=== PATIENT | female | born 1990 | race African-American/Black ===

== ENCOUNTER 2016-03-23 15:41 | Emergency (ER) | payer OTHER ==
[~2016-03-23] VITALS: Ht 172.7 cm; Wt 71.3 kg
[~2016-03-23 15:41] MED LIST: BENTYL20 MG PO; BIOTIN1000 MICRO PO; CELEXA10 MG PO; CLINDAMYCIN HC300 MG PO; LEVBID0.375 MG PO; MIRALAX17 GM PO; MIRALAX255 GM PO; PEPCID20 MG PO; PRILOSEC10 MG PO; TOPAMAX50 MG PO; ULTRAM50 MG PO; ZITHROMAX Z-PA250 MG PO; ZOFRAN ODT8 MG PO
[2016-03-23] MEDS ORDERED: FLEXERIL10 MG PO (19:59)
[2016-03-23] MEDS ORDERED: NORCO 5/3251 TABLET PO (19:59)
[2016-03-23 20:45] VITALS: BP 115/71
== END 2016-03-23 20:46 | disposition home or self-care (01) ==
LOC: EME 15:41
DX: S46.912A Strain of unspecified muscle, fascia and tendon at shoulder and upper arm level, left arm, initial encounter (principal); V49.40XA Driver injured in collision with unspecified motor vehicles in traffic accident, initial encounter; F17.200 Nicotine dependence, unspecified, uncomplicated
CPT/HCPCS: 73030; 99281; 99283

== ENCOUNTER 2016-04-17 12:48 | Emergency (ER) | payer OTHER ==
[~2016-04-17] VITALS: Ht 172.7 cm; Wt 72.9 kg
[~2016-04-17 12:48] MED LIST changes: +FLEXERIL10 MG PO; +NORCO 5/3251 TABLET PO
[2016-04-17 13:22] LABS: HEMATOCRIT 35.7 % (36.0-46.0); MCH 31.3 PG (29.0-34.0); MCHC 34.5 G/DL (30.0-36.0); MCV 90.8 FL (83-99); MEAN PLAT.VOLUME 10.7 uM^3 (9.5-12.4); PLATELET COUNT 210 K/uL (156-360); RBC DIS.WIDTH-CV 12.7 % (11.8-14.6); RBC DIS.WIDTH-SD 41.4 % (39-53); RED BLOOD COUNT 3.93 M/uL (3.80-5.20); WHITE BLOOD COUNT 5.7 K/uL (4.1-10.2)
[2016-04-17 13:23] LABS: ADD MIUA? NO; BILIRUBIN NEGATIVE; BLOOD NEGATIVE; COLOR YELLOW ((YELLOW)); GLUCOSE (STRIP) NEGATIVE; KETONES NEGATIVE; LEUKOCYTES NEGATIVE; NITRITE NEGATIVE; PROTEIN (STRIP) NEGATIVE; SPECIFIC GRAVITY 1.008 (1.000-1.030); UCUL ADDED? NO; UROBILINOGEN 0.2 MG/DL (0.2-1.0)
[2016-04-17 13:33] LABS: CHLORIDE 111 mEq/L (99-109); POTASSIUM 3.8 mEq/L (3.7-5.4); SODIUM 139 mEq/L (136-147)
[2016-04-17 13:35] LABS: GLUCOSE 91 mg/dL (70-99)
[2016-04-17 13:36] LABS: ANION GAP 8 MEQ/L (2-14)
[2016-04-17 13:37] LABS: TOTAL BILIRUBIN 0.6 mg/dL (0.0-1.0)
[2016-04-17 13:39] LABS: ALKALINE PHOSPHATASE 52 IU/L (3-129); GFR ESTIMATE (CALCULATED) > 59 mL/min/
[2016-04-17 13:40] LABS: UREA NITROGEN (BUN) 12 mg/dL (9-23)
[2016-04-17 13:48] LABS: QUANTITATIVE HCG < 4.0 MIU/ML
[2016-04-17 14:55] LABS: LIPASE 64 U/L (1.0-51.0)
[2016-04-17 16:05] LABS: INFLUENZA A VIRAL ANTIGEN NEGATIVE; INFLUENZA B VIRAL ANTIGEN NEGATIVE
[2016-04-17] MEDS ORDERED: ZOFRAN ODT4 MG PO (16:53)
[2016-04-17] MEDS ORDERED: NAPROSYN500 MG PO (16:53)
[2016-04-17 17:21] VITALS: BP 95/57
== END 2016-04-17 17:29 | disposition home or self-care (01) ==
LOC: EME 12:48
PROVIDERS: Nurse Practitioner Family
DX: N83.201 Unspecified ovarian cyst, right side (principal); M79.1 Myalgia; R74.8 Abnormal levels of other serum enzymes; K59.00 Constipation, unspecified; F17.200 Nicotine dependence, unspecified, uncomplicated
CPT/HCPCS: 74177; 80053; 81003; 83690; 84702; 85027; 87502; 93005; 99281; 99285; J1885; J7030

== ENCOUNTER 2016-06-15 23:56 | Emergency (ER) | payer OTHER ==
[~2016-06-15] VITALS: Ht 172.7 cm; Wt 76.1 kg
[~2016-06-15 23:56] MED LIST changes: +NAPROSYN500 MG PO; +ZOFRAN ODT4 MG PO
[2016-06-16 00:32] LABS: HEMATOCRIT 32.2 % (36.0-46.0); MCH 30.7 PG (29.0-34.0); MCHC 33.2 G/DL (30.0-36.0); MCV 92.5 FL (83-99); MEAN PLAT.VOLUME 10.2 uM^3 (9.5-12.4); PLATELET COUNT 205 K/uL (156-360); RBC DIS.WIDTH-CV 12.4 % (11.8-14.6); RBC DIS.WIDTH-SD 41.9 % (39-53); RED BLOOD COUNT 3.48 M/uL (3.80-5.20); WHITE BLOOD COUNT 6.2 K/uL (4.1-10.2)
[2016-06-16 00:42] LABS: CHLORIDE 106 mEq/L (99-109); POTASSIUM 3.7 mEq/L (3.7-5.4); SODIUM 137 mEq/L (136-147)
[2016-06-16 00:45] LABS: GLUCOSE 95 mg/dL (70-99)
[2016-06-16 00:46] LABS: ANION GAP 7 MEQ/L (2-14)
[2016-06-16 00:47] LABS: TOTAL BILIRUBIN 0.1 mg/dL (0.0-1.0)
[2016-06-16 00:48] LABS: ALKALINE PHOSPHATASE 42 IU/L (3-129); GFR ESTIMATE (CALCULATED) > 59 mL/min/
[2016-06-16 00:49] LABS: UREA NITROGEN (BUN) 16 mg/dL (9-23)
[2016-06-16 00:50] LABS: ADD MIUA? YES; BILIRUBIN NEGATIVE; BLOOD SMALL; COLOR STRAW ((YELLOW)); GLUCOSE (STRIP) NEGATIVE; KETONES NEGATIVE; LEUKOCYTES NEGATIVE; NITRITE NEGATIVE; PROTEIN (STRIP) NEGATIVE; SPECIFIC GRAVITY 1.012 (1.000-1.030); UROBILINOGEN 0.2 MG/DL (0.2-1.0)
[2016-06-16 00:55] LABS: BACTERIA RARE /HPF; EPITHELIAL CELLS RARE /HPF; MUCUS TRACE /LPF; RED BLOOD CELLS 0-5 /HPF (0-5); UCUL ADDED? NO; WHITE BLOOD CELLS 0-5 /HPF (0-5)
[2016-06-16 00:59] LABS: QUANTITATIVE HCG < 4.0 MIU/ML
[2016-06-16 03:51] LABS: LIPASE 58 U/L (1.0-51.0)
[2016-06-16] MEDS ORDERED: NORCO 5/3251 TABLET PO (05:15)
[2016-06-16] MEDS ORDERED: BENTYL20 MG PO (05:15)
[2016-06-16 05:31] VITALS: BP 97/55
== END 2016-06-16 05:50 | disposition home or self-care (01) ==
LOC: EME 23:56
DX: R10.84 Generalized abdominal pain (principal); R19.7 Diarrhea, unspecified; Z87.19 Personal history of other diseases of the digestive system; Z88.0 Allergy status to penicillin; Z88.1 Allergy status to other antibiotic agents
CPT/HCPCS: 80053; 81003; 83690; 84702; 85027; 99281; 99283

== ENCOUNTER 2016-07-18 03:35 | Emergency (ER) | payer OTHER ==
[~2016-07-18] VITALS: Ht 172.7 cm; Wt 72.2 kg
[2016-07-18 04:21] VITALS: BP 124/87
== END 2016-07-18 04:22 | disposition home or self-care (01) ==
LOC: EME 03:35
DX: G89.18 Other acute postprocedural pain (principal); K08.89 Other specified disorders of teeth and supporting structures; K58.9 Irritable bowel syndrome, unspecified; F17.200 Nicotine dependence, unspecified, uncomplicated
CPT/HCPCS: 99281; 99283

== ENCOUNTER 2016-07-18 20:21 | Emergency (ER) | payer OTHER ==
[~2016-07-18] VITALS: Ht 172.7 cm; Wt 72.1 kg
[2016-07-18 22:32] VITALS: BP 144/80
== END 2016-07-18 22:32 | disposition home or self-care (01) ==
LOC: EME 20:21
DX: K08.89 Other specified disorders of teeth and supporting structures (principal); G89.18 Other acute postprocedural pain; Z98.818 Other dental procedure status; N89.8 Other specified noninflammatory disorders of vagina; F17.200 Nicotine dependence, unspecified, uncomplicated
CPT/HCPCS: 99281; 99284; J1885; J3010

== ENCOUNTER 2016-09-02 10:02 | Emergency (ER) | payer OTHER ==
[~2016-09-02] VITALS: Ht 172.7 cm; Wt 69.1 kg
[2016-09-02 11:56] LABS: HEMATOCRIT 37.3 % (36.0-46.0); MCH 29.6 PG (29.0-34.0); MCHC 32.4 G/DL (30.0-36.0); MCV 91.2 FL (83-99); MEAN PLAT.VOLUME 10.8 uM^3 (9.5-12.4); PLATELET COUNT 149 K/uL (156-360); RBC DIS.WIDTH-CV 14.2 % (11.8-14.6); RBC DIS.WIDTH-SD 47.7 % (39-53); RED BLOOD COUNT 4.09 M/uL (3.80-5.20); WHITE BLOOD COUNT 1.9 K/uL (4.1-10.2)
[2016-09-02 11:57] LABS: CHLORIDE 105 mEq/L (99-109); POTASSIUM 3.6 mEq/L (3.7-5.4); SODIUM 137 mEq/L (136-147)
[2016-09-02 11:59] LABS: GLUCOSE 85 mg/dL (70-99)
[2016-09-02 12:00] LABS: ANION GAP 9 MEQ/L (2-14)
[2016-09-02 12:01] LABS: TOTAL BILIRUBIN 0.2 mg/dL (0.0-1.0)
[2016-09-02 12:03] LABS: ALKALINE PHOSPHATASE 48 IU/L (3-129); GFR ESTIMATE (CALCULATED) > 59 mL/min/
[2016-09-02 12:04] LABS: UREA NITROGEN (BUN) 5 mg/dL (9-23)
[2016-09-02 12:11] LABS: QUANTITATIVE HCG < 4.0 MIU/ML
[2016-09-02] MEDS ORDERED: ESCITALOPRAM OX10 MG PO (12:12)
[2016-09-02] MEDS ORDERED: VALACYCLOVIR1000 MG PO (12:12)
[2016-09-02] MEDS ORDERED: LINZESS290 MCG PO (12:12)
[2016-09-02 12:13] LABS: INTERNAL CONTROL VALID? YES; MONOSPOT (MONONUCLEOSIS SEROL) POSITIVE
[2016-09-02 13:05] LABS: BILIRUBIN NEGATIVE; BLOOD NEGATIVE; COLOR YELLOW ((YELLOW)); GLUCOSE (STRIP) NEGATIVE; KETONES 20; LEUKOCYTES NEGATIVE; NITRITE NEGATIVE; PROTEIN (STRIP) NEGATIVE; SPECIFIC GRAVITY 1.013 (1.000-1.030); UROBILINOGEN 0.2 MG/DL (0.2-1.0)
[2016-09-02 13:06] LABS: ADD MIUA? NO; UCUL ADDED? NO
[2016-09-02] MEDS ORDERED: TRAMADOL HCL50 MG PO (13:29)
[2016-09-02] MEDS ORDERED: PREDNISONE10 M1 PO (13:29)
[2016-09-02] MEDS ORDERED: MOTRIN600 MG PO (13:29)
[2016-09-02 13:49] VITALS: BP 102/68
[2016-09-05 11:56] LABS: CHLAMYDIA TRACHOMATIS NEGATIVE; NEISSERIA GONORRHOEAE NEGATIVE
== END 2016-09-02 13:50 | disposition home or self-care (01) ==
LOC: EME 10:02
PROVIDERS: Physician Assistant
DX: B27.89 Other infectious mononucleosis with other complication (principal); D72.819 Decreased white blood cell count, unspecified; N89.8 Other specified noninflammatory disorders of vagina; M79.1 Myalgia; F17.200 Nicotine dependence, unspecified, uncomplicated
CPT/HCPCS: 80053; 81003; 84702; 85027; 86308; 86701 90; 86702 90; 86703; 87210; 87491; 87591; 87651 90; 99281; 99284; J1885; J3010; J7030

== ENCOUNTER 2016-10-30 01:05 | Emergency (ER) | payer OTHER ==
[~2016-10-30] VITALS: Ht 172.7 cm; Wt 68.5 kg
[~2016-10-30 01:05] MED LIST changes: +ESCITALOPRAM OX10 MG PO; +LINZESS290 MCG PO; +MOTRIN600 MG PO; +PREDNISONE10 M1 PO; +TRAMADOL HCL50 MG PO; +VALACYCLOVIR1000 MG PO
[2016-10-30 01:59] LABS: HEMATOCRIT 28.7 % (36.0-46.0); MCH 32.3 PG (29.0-34.0); MCHC 34.8 G/DL (30.0-36.0); MCV 92.6 FL (83-99); MEAN PLAT.VOLUME 10.2 uM^3 (9.5-12.4); PLATELET COUNT 217 K/uL (156-360); RBC DIS.WIDTH-CV 15.7 % (11.8-14.6); RBC DIS.WIDTH-SD 53.3 % (39-53); WHITE BLOOD COUNT 4.1 K/uL (4.1-10.2)
[2016-10-30] MEDS ORDERED: PERCOCET 5/31 TABLET PO (02:32)
[2016-10-30 03:01] VITALS: BP 107/64
[2016-10-31 13:40] LABS: CHLAMYDIA TRACHOMATIS NEGATIVE; NEISSERIA GONORRHOEAE NEGATIVE
== END 2016-10-30 03:04 | disposition home or self-care (01) ==
LOC: EME 01:05
PROVIDERS: Emergency Medicine
DX: B00.9 Herpesviral infection, unspecified (principal); Z21 Asymptomatic human immunodeficiency virus [HIV] infection status; K58.9 Irritable bowel syndrome, unspecified; F17.200 Nicotine dependence, unspecified, uncomplicated; Z88.0 Allergy status to penicillin
CPT/HCPCS: 85027; 86355 90; 86359 90; 86360 90; 87210; 87491; 87591; 99281; 99284

== ENCOUNTER 2016-11-06 16:36 | Emergency (ER) | payer OTHER ==
[~2016-11-06] VITALS: Ht 172.7 cm; Wt 66.7 kg
[~2016-11-06 16:36] MED LIST changes: +PERCOCET 5/31 TABLET PO
[2016-11-06 16:58] LABS: ADD MIUA? NO; BILIRUBIN NEGATIVE; BLOOD NEGATIVE; COLOR YELLOW ((YELLOW)); GLUCOSE (STRIP) NEGATIVE; KETONES NEGATIVE; LEUKOCYTES NEGATIVE; NITRITE NEGATIVE; PROTEIN (STRIP) NEGATIVE; UCUL ADDED? NO; UROBILINOGEN 0.2 MG/DL (0.2-1.0)
[2016-11-06] MEDS ORDERED: TRIUMEQ TABLET1 EACH PO (18:07)
[2016-11-06 18:56] LABS: EOSINOPHIL (%) 0.6 % (0-5); HEMATOCRIT 34.2 % (36.0-46.0); IMMATURE GRANULOCYTE (%) 0.2 % (0.0-0.7); INSTRUMENT ABS NEUTROPHIL CT 3.2 K/uL; LYMPHOCYTE COUNT 1.7 K/uL (1.0-2.8); MCH 32.3 PG (29.0-34.0); MCHC 34.5 G/DL (30.0-36.0); MCV 93.7 FL (83-99); MEAN PLAT.VOLUME 9.9 uM^3 (9.5-12.4); MONOCYTE (%) 6.6 % (3-12); MONOCYTE COUNT 0.4 K/uL (0-0.8); NEUTROPHIL (%) 60.2 % (45-76); NEUTROPHIL COUNT 3.2 K/uL (1.8-6.4); PLATELET COUNT 238 K/uL (156-360); RBC DIS.WIDTH-CV 14.9 % (11.8-14.6); RBC DIS.WIDTH-SD 51.2 % (39-53); RED BLOOD COUNT 3.65 M/uL (3.80-5.20); WHITE BLOOD COUNT 5.3 K/uL (4.1-10.2)
[2016-11-06 19:05] LABS: CHLORIDE 111 mEq/L (99-109); POTASSIUM 3.8 mEq/L (3.7-5.4); SODIUM 141 mEq/L (136-147)
[2016-11-06 19:07] LABS: GLUCOSE 107 mg/dL (70-99)
[2016-11-06 19:08] LABS: ANION GAP 10 MEQ/L (2-14)
[2016-11-06 19:09] LABS: TOTAL BILIRUBIN 0.5 mg/dL (0.0-1.0)
[2016-11-06 19:10] LABS: ALKALINE PHOSPHATASE 56 IU/L (3-129); GFR ESTIMATE (CALCULATED) > 59 mL/min/
[2016-11-06 19:12] LABS: UREA NITROGEN (BUN) 12 mg/dL (9-23)
[2016-11-06 19:14] LABS: LIPASE 46 U/L (1.0-51.0)
[2016-11-06] MEDS ORDERED: BENTYL20 MG PO (21:17)
[2016-11-06] MEDS ORDERED: ZOFRAN ODT4 MG PO (21:17)
[2016-11-06] MEDS ORDERED: MOTRIN600 MG PO (21:18)
[2016-11-06 21:58] VITALS: BP 116/78
== END 2016-11-06 22:01 | disposition home or self-care (01) ==
LOC: EME 16:36
PROVIDERS: Physician Assistant
DX: R10.9 Unspecified abdominal pain (principal); R11.2 Nausea with vomiting, unspecified; R19.7 Diarrhea, unspecified; M26.609 Unspecified temporomandibular joint disorder, unspecified side; Z21 Asymptomatic human immunodeficiency virus [HIV] infection status; K58.9 Irritable bowel syndrome, unspecified
CPT/HCPCS: 74177; 80053; 81003; 83690; 85025; 87493; 87506; 99281; 99284; J0500; J1885; J2405; J2765; J3010; J7030

== ENCOUNTER 2016-11-12 04:33 | Emergency (ER) | payer OTHER ==
[~2016-11-12] VITALS: Ht 172.7 cm; Wt 66.9 kg
[~2016-11-12 04:33] MED LIST changes: +TRIUMEQ TABLET1 EACH PO
[2016-11-12 05:42] LABS: MCH 32.9 PG (29.0-34.0); MCHC 34.8 G/DL (30.0-36.0); MCV 94.5 FL (83-99); MEAN PLAT.VOLUME 9.9 uM^3 (9.5-12.4); PLATELET COUNT 228 K/uL (156-360); RBC DIS.WIDTH-CV 14.4 % (11.8-14.6); RBC DIS.WIDTH-SD 49.1 % (39-53); RED BLOOD COUNT 3.28 M/uL (3.80-5.20); WHITE BLOOD COUNT 3.6 K/uL (4.1-10.2)
[2016-11-12 05:54] LABS: CHLORIDE 111 mEq/L (99-109); POTASSIUM 3.6 mEq/L (3.7-5.4); SODIUM 144 mEq/L (136-147)
[2016-11-12 05:56] LABS: GLUCOSE 109 mg/dL (70-99)
[2016-11-12 05:57] LABS: ANION GAP 9 MEQ/L (2-14)
[2016-11-12 06:00] LABS: ALKALINE PHOSPHATASE 46 IU/L (3-129); GFR ESTIMATE (CALCULATED) > 59 mL/min/
[2016-11-12 06:01] LABS: UREA NITROGEN (BUN) 7 mg/dL (9-23)
[2016-11-12 06:03] LABS: LIPASE 40 U/L (1.0-51.0)
[2016-11-12 06:10] LABS: TOTAL BILIRUBIN 0.2 mg/dL (0.0-1.0)
[2016-11-12] MEDS ORDERED: ANTI-DIARRHEA2 MG PO (07:04)
[2016-11-12 07:15] VITALS: BP 106/70
== END 2016-11-12 07:16 | disposition home or self-care (01) ==
LOC: EME 04:33
PROVIDERS: Emergency Medicine
DX: R11.2 Nausea with vomiting, unspecified (principal); R19.7 Diarrhea, unspecified; M79.1 Myalgia; D64.9 Anemia, unspecified; Z21 Asymptomatic human immunodeficiency virus [HIV] infection status; F17.200 Nicotine dependence, unspecified, uncomplicated
CPT/HCPCS: 80053; 81003; 83605; 83690; 85027; 86355 90; 86359 90; 86360 90; 87177; 87493; 87506; J2270; J2765; J7030

== ENCOUNTER 2016-11-17 03:09 | Emergency (ER) | payer OTHER ==
[~2016-11-17] VITALS: Ht 175.3 cm; Wt 67.4 kg
[~2016-11-17 03:09] MED LIST changes: +ANTI-DIARRHEA2 MG PO
[2016-11-17 04:25] LABS: HEMATOCRIT 33.1 % (36.0-46.0); MCH 32.7 PG (29.0-34.0); MCHC 34.4 G/DL (30.0-36.0); MCV 94.8 FL (83-99); MEAN PLAT.VOLUME 10.9 uM^3 (9.5-12.4); PLATELET COUNT 176 K/uL (156-360); RBC DIS.WIDTH-CV 14.5 % (11.8-14.6); RBC DIS.WIDTH-SD 49.7 % (39-53); RED BLOOD COUNT 3.49 M/uL (3.80-5.20); WHITE BLOOD COUNT 3.3 K/uL (4.1-10.2)
[2016-11-17 04:36] LABS: CHLORIDE 110 mEq/L (99-109); POTASSIUM 3.4 mEq/L (3.7-5.4); SODIUM 141 mEq/L (136-147)
[2016-11-17 04:38] LABS: GLUCOSE 89 mg/dL (70-99)
[2016-11-17 04:39] LABS: ANION GAP 9 MEQ/L (2-14)
[2016-11-17 04:42] LABS: ALKALINE PHOSPHATASE 49 IU/L (3-129); GFR ESTIMATE (CALCULATED) > 59 mL/min/
[2016-11-17 04:43] LABS: TOTAL BILIRUBIN 0.3 mg/dL (0.0-1.0); UREA NITROGEN (BUN) 6 mg/dL (9-23)
[2016-11-17 04:45] LABS: LIPASE 40 U/L (1.0-51.0)
[2016-11-17] MEDS ORDERED: ZOFRAN8 MG PO (06:07)
[2016-11-17] MEDS ORDERED: ANTI-DIARRHEA2 MG PO (06:07)
[2016-11-17 06:37] VITALS: BP 102/70
== END 2016-11-17 06:39 | disposition home or self-care (01) ==
LOC: EME 03:09
PROVIDERS: Emergency Medicine
DX: R11.2 Nausea with vomiting, unspecified (principal); K58.0 Irritable bowel syndrome with diarrhea; D64.9 Anemia, unspecified; B20 Human immunodeficiency virus [HIV] disease; Z90.49 Acquired absence of other specified parts of digestive tract; F17.200 Nicotine dependence, unspecified, uncomplicated
CPT/HCPCS: 80053; 83630; 83690; 85027; 87177; 87493; 99281; 99285; J2405; J7030

== ENCOUNTER 2016-11-20 06:27 | Emergency (ER) | payer OTHER ==
[~2016-11-20] VITALS: Ht 175.3 cm; Wt 69.2 kg
[~2016-11-20 06:27] MED LIST changes: +ZOFRAN8 MG PO
[2016-11-20 07:02] LABS: HEMATOCRIT 31.4 % (36.0-46.0); MCH 32.7 PG (29.0-34.0); MCHC 34.1 G/DL (30.0-36.0); MEAN PLAT.VOLUME 10.2 uM^3 (9.5-12.4); PLATELET COUNT 209 K/uL (156-360); RBC DIS.WIDTH-CV 14.6 % (11.8-14.6); RBC DIS.WIDTH-SD 51.1 % (39-53); RED BLOOD COUNT 3.27 M/uL (3.80-5.20); WHITE BLOOD COUNT 3.8 K/uL (4.1-10.2)
[2016-11-20 07:23] LABS: D-DIMER ELISA < 150.00 ng/mLDDU (<230)
[2016-11-20 07:25] LABS: ANION GAP 7 MEQ/L (2-14); CHLORIDE 106 MEQ/L (99-109); POTASSIUM 3.5 MEQ/L (3.7-5.4); SAMPLE HEMOLYSIS CHECK 0; SAMPLE ICTERIC CHECK 0; SAMPLE LIPEMIA CHECK 0; SODIUM 139 MEQ/L (136-147)
[2016-11-20 07:30] LABS: GFR ESTIMATE (CALCULATED) > 59 mL/min/; GLUCOSE 87 mg/dL (70-99); UREA NITROGEN (BUN) 9 mg/dL (9-23)
[2016-11-20] MEDS ORDERED: LEVAQUIN750 MG PO (07:36)
[2016-11-20] MEDS ORDERED: PROVENTIL HFA6.7 GM IH (07:36)
[2016-11-20 07:53] VITALS: BP 102/49
== END 2016-11-20 07:54 | disposition home or self-care (01) ==
LOC: EME 06:27
PROVIDERS: Emergency Medicine
DX: J45.909 Unspecified asthma, uncomplicated (principal); B20 Human immunodeficiency virus [HIV] disease; Z88.0 Allergy status to penicillin; F17.200 Nicotine dependence, unspecified, uncomplicated
CPT/HCPCS: 71020; 80048; 85027; 85379; 94640; 99281; 99282

== ENCOUNTER 2016-12-22 10:48 | Emergency (ER) | payer OTHER ==
[~2016-12-22] VITALS: Ht 172.7 cm; Wt 68.4 kg
[~2016-12-22 10:48] MED LIST changes: +LEVAQUIN750 MG PO; +PROVENTIL HFA6.7 GM IH
[2016-12-22 12:33] LABS: EOSINOPHIL COUNT 0.1 K/uL (0-0.3); HEMATOCRIT 33.7 % (36.0-46.0); INSTRUMENT ABS NEUTROPHIL CT 3.2 K/uL; LYMPHOCYTE COUNT 1.6 K/uL (1.0-2.8); MCH 32.7 PG (29.0-34.0); MCHC 33.5 G/DL (30.0-36.0); MCV 97.4 FL (83-99); MEAN PLAT.VOLUME 9.6 uM^3 (9.5-12.4); MONOCYTE (%) 4.7 % (3-12); MONOCYTE COUNT 0.2 K/uL (0-0.8); NEUTROPHIL COUNT 3.2 K/uL (1.8-6.4); PLATELET COUNT 183 K/uL (156-360); RBC DIS.WIDTH-CV 12.9 % (11.8-14.6); RBC DIS.WIDTH-SD 46.3 % (39-53); RED BLOOD COUNT 3.46 M/uL (3.80-5.20); WHITE BLOOD COUNT 5.1 K/uL (4.1-10.2)
[2016-12-22 12:47] LABS: CHLORIDE 111 mEq/L (99-109); POTASSIUM 3.8 mEq/L (3.7-5.4); SODIUM 140 mEq/L (136-147)
[2016-12-22 12:49] LABS: GLUCOSE 95 mg/dL (70-99)
[2016-12-22 12:50] LABS: ANION GAP 7 MEQ/L (2-14)
[2016-12-22 12:51] LABS: TOTAL BILIRUBIN 0.4 mg/dL (0.0-1.0)
[2016-12-22 12:53] LABS: ALKALINE PHOSPHATASE 40 IU/L (3-129); GFR ESTIMATE (CALCULATED) > 59 mL/min/
[2016-12-22 12:54] LABS: UREA NITROGEN (BUN) 8 mg/dL (9-23)
[2016-12-22 12:59] LABS: TROP-I INTERPRETATION NEGATIVE; TROPONIN-I < 0.01 ng/mL (0.0-0.30)
[2016-12-22 13:01] LABS: QUANTITATIVE HCG < 4.0 MIU/ML
[2016-12-22 15:55] VITALS: BP 104/62
== END 2016-12-22 15:55 | disposition home or self-care (01) ==
LOC: EME 10:48
PROVIDERS: Emergency Medicine
DX: R07.89 Other chest pain (principal); Z21 Asymptomatic human immunodeficiency virus [HIV] infection status; F17.200 Nicotine dependence, unspecified, uncomplicated; Z88.0 Allergy status to penicillin
CPT/HCPCS: 71275; 80053; 84484; 84702; 85025; 93005; 99281; 99283

== ENCOUNTER 2017-01-07 23:27 | Emergency (ER) | payer OTHER ==
[~2017-01-07] VITALS: Ht 172.7 cm; Wt 68.4 kg
[2017-01-07 23:59] LABS: EOSINOPHIL COUNT 0.1 K/uL (0-0.3); HEMATOCRIT 32.1 % (36.0-46.0); INSTRUMENT ABS NEUTROPHIL CT 1.3 K/uL; LYMPHOCYTE COUNT 2.7 K/uL (1.0-2.8); MCH 32.6 PG (29.0-34.0); MCV 96.1 FL (83-99); MEAN PLAT.VOLUME 10.5 uM^3 (9.5-12.4); MONOCYTE (%) 7.6 % (3-12); MONOCYTE COUNT 0.3 K/uL (0-0.8); NEUTROPHIL (%) 29.4 % (45-76); NEUTROPHIL COUNT 1.3 K/uL (1.8-6.4); PLATELET COUNT 190 K/uL (156-360); RBC DIS.WIDTH-CV 12.5 % (11.8-14.6); RBC DIS.WIDTH-SD 44.6 % (39-53); RED BLOOD COUNT 3.34 M/uL (3.80-5.20); WHITE BLOOD COUNT 4.5 K/uL (4.1-10.2)
[2017-01-08 00:02] LABS: ADD MIUA? NO; BILIRUBIN NEGATIVE; BLOOD NEGATIVE; COLOR STRAW ((YELLOW)); GLUCOSE (STRIP) NEGATIVE; KETONES NEGATIVE; LEUKOCYTES NEGATIVE; NITRITE NEGATIVE; PROTEIN (STRIP) NEGATIVE; SPECIFIC GRAVITY 1.008 (1.000-1.030); UCUL ADDED? NO; UROBILINOGEN 0.2 MG/DL (0.2-1.0)
[2017-01-08 00:07] LABS: CHLORIDE 109 mEq/L (99-109); POTASSIUM 3.2 mEq/L (3.7-5.4); SODIUM 141 mEq/L (136-147)
[2017-01-08 00:09] LABS: GLUCOSE 88 mg/dL (70-99)
[2017-01-08 00:10] LABS: ANION GAP 8 MEQ/L (2-14)
[2017-01-08 00:11] LABS: TOTAL BILIRUBIN 0.4 mg/dL (0.0-1.0)
[2017-01-08 00:13] LABS: ALKALINE PHOSPHATASE 43 IU/L (3-129); GFR ESTIMATE (CALCULATED) > 59 mL/min/
[2017-01-08 00:14] LABS: UREA NITROGEN (BUN) 13 mg/dL (9-23)
[2017-01-08 00:16] LABS: LIPASE 72 U/L (1.0-51.0)
[2017-01-08 00:22] LABS: QUANTITATIVE HCG < 4.0 MIU/ML
[2017-01-08] MEDS ORDERED: BENTYL20 MG PO (02:13)
[2017-01-08 02:41] VITALS: BP 97/57
== END 2017-01-08 02:42 | disposition home or self-care (01) ==
LOC: EME 23:27
PROVIDERS: Emergency Medicine
DX: R10.9 Unspecified abdominal pain (principal); Z21 Asymptomatic human immunodeficiency virus [HIV] infection status; F17.200 Nicotine dependence, unspecified, uncomplicated; Z88.0 Allergy status to penicillin
CPT/HCPCS: 71020; 80053; 81003; 83690; 84702; 85025; 99281; 99284; J1885; J7030

== ENCOUNTER 2017-02-02 18:01 | Emergency (ER) | payer OTHER ==
[~2017-02-02] VITALS: Ht 172.7 cm; Wt 69.5 kg
[2017-02-02] MEDS ORDERED: CLEOCIN300 MG PO (21:24)
[2017-02-02 21:38] VITALS: BP 109/86
== END 2017-02-02 21:40 | disposition home or self-care (01) ==
LOC: EME 18:01
PROC: 0H9JXZZ Drainage of Left Upper Leg Skin, External Approach (ICD-10-PCS; principal; 2017-02-02)
DX: L02.416 Cutaneous abscess of left lower limb (principal); J03.90 Acute tonsillitis, unspecified; Z21 Asymptomatic human immunodeficiency virus [HIV] infection status; Z88.0 Allergy status to penicillin
CPT/HCPCS: 71020; 87651 90; 99281; 99284; J2060

== ENCOUNTER 2017-02-13 23:37 | Emergency (ER) | payer OTHER ==
[~2017-02-13] VITALS: Ht 172.7 cm; Wt 70.7 kg
[~2017-02-13 23:37] MED LIST changes: +CLEOCIN300 MG PO
[2017-02-14 00:19] LABS: HEMATOCRIT 31.8 % (36.0-46.0); MCH 33.4 PG (29.0-34.0); MCHC 35.2 G/DL (30.0-36.0); MCV 94.9 FL (83-99); MEAN PLAT.VOLUME 10.5 uM^3 (9.5-12.4); PLATELET COUNT 218 K/uL (156-360); RBC DIS.WIDTH-CV 12.4 % (11.8-14.6); RBC DIS.WIDTH-SD 43.2 % (39-53); RED BLOOD COUNT 3.35 M/uL (3.80-5.20); WHITE BLOOD COUNT 4.8 K/uL (4.1-10.2)
[2017-02-14 00:30] LABS: CHLORIDE 108 mEq/L (99-109); POTASSIUM 3.2 mEq/L (3.7-5.4); SODIUM 137 mEq/L (136-147)
[2017-02-14 00:32] LABS: GLUCOSE 94 mg/dL (70-99)
[2017-02-14 00:34] LABS: ANION GAP 7 MEQ/L (2-14); TOTAL BILIRUBIN 0.4 mg/dL (0.0-1.0)
[2017-02-14 00:36] LABS: ALKALINE PHOSPHATASE 48 IU/L (3-129); GFR ESTIMATE (CALCULATED) > 59 mL/min/
[2017-02-14 00:37] LABS: UREA NITROGEN (BUN) 9 mg/dL (9-23)
[2017-02-14 00:47] LABS: QUANTITATIVE HCG < 4.0 MIU/ML
[2017-02-14 02:29] LABS: ADD MIUA? NO; BILIRUBIN NEGATIVE; BLOOD NEGATIVE; COLOR YELLOW ((YELLOW)); GLUCOSE (STRIP) NEGATIVE; KETONES NEGATIVE; LEUKOCYTES NEGATIVE; NITRITE NEGATIVE; PROTEIN (STRIP) NEGATIVE; SPECIFIC GRAVITY 1.006 (1.000-1.030); UCUL ADDED? NO; UROBILINOGEN 0.2 MG/DL (0.2-1.0)
[2017-02-14 03:09] VITALS: BP 104/66
== END 2017-02-14 03:12 | disposition home or self-care (01) ==
LOC: EME 23:37
DX: N92.6 Irregular menstruation, unspecified (principal); N83.202 Unspecified ovarian cyst, left side; K58.9 Irritable bowel syndrome, unspecified; Z21 Asymptomatic human immunodeficiency virus [HIV] infection status; F17.200 Nicotine dependence, unspecified, uncomplicated; Z88.0 Allergy status to penicillin; Z88.1 Allergy status to other antibiotic agents
CPT/HCPCS: 76856; 80053; 81003; 84702; 85027; 99281; 99285

== ENCOUNTER 2017-04-18 09:20 | Emergency (ER) | payer OTHER ==
[~2017-04-18] VITALS: Ht 172.7 cm; Wt 73.1 kg
[2017-04-18] MEDS ORDERED: FLEXERIL10 MG PO (11:58)
[2017-04-18] MEDS ORDERED: VOLTAREN 1% GE100 GM TP (11:58)
[2017-04-18 12:31] VITALS: BP 105/68
== END 2017-04-18 12:32 | disposition home or self-care (01) ==
LOC: EME 09:20
DX: S39.012A Strain of muscle, fascia and tendon of lower back, initial encounter (principal); M62.830 Muscle spasm of back; X50.3XXA Overexertion from repetitive movements, initial encounter; Y93.89 Activity, other specified; Y99.0 Civilian activity done for income or pay; K58.9 Irritable bowel syndrome, unspecified; Z21 Asymptomatic human immunodeficiency virus [HIV] infection status; F17.200 Nicotine dependence, unspecified, uncomplicated; Z88.0 Allergy status to penicillin; Z88.1 Allergy status to other antibiotic agents
CPT/HCPCS: 99281; 99283